=== PATIENT | male | born 1975 | race Caucasian/White ===

== ENCOUNTER 2020-10-13 10:22 | Inpatient (IN) | payer BC, SELFPAY ==
[~2020-10-13] VITALS: Ht 170.2 cm; Wt 103.9 kg
[2020-10-13 10:25] VITALS: BP_SYST 120
--- NOTE | 2020-10-13 10:30 | NUR ---
Patient to TENT1 for evaluation. Side rails up.
--- NOTE | 2020-10-13 10:45 | NUR ---
ER at bedside examining patient.
--- NOTE | 2020-10-13 11:00 | NUR ---
PT PRESENTS TO ED C/O COVID SYMPTOMS.
[2020-10-13 11:18] LABS: BASOPHILS # (AUTO) 0.1 K/uL (0.0-0.2); BASOPHILS % (AUTO) 0.4 % (0.0-2.0); HEMATOCRIT 31.2 % (36-54); HEMOGLOBIN 10.7 g/dL (14.0-18.0); LYMPHOCYTES # (AUTO) 0.7 K/uL (1.0-5.5); LYMPHOCYTES % (AUTO) 4.2 % (20.5-51.5); MEAN CORPUSCULAR HEMOGLOBIN 30 pg (27-31); MEAN CORPUSCULAR HGB CONC 34 % (32-36); MEAN CORPUSCULAR VOLUME 89 fL (79.0-98.0); MONOCYTES # (AUTO) 0.9 K/uL (0.0-1.0); MONOCYTES % (AUTO) 5.6 % (1.7-9.3); NEUTROPHILS # (AUTO) 14.6 K/uL (1.8-7.7); NEUTROPHILS % (AUTO) 89.8 % (40.0-70.0); PLATELET COUNT (AUTO) 501 K/uL (130-430); RED BLOOD CELL COUNT(AUTO) 3.52 MIL/uL (4.2-6.2); RED CELL DISTRIBUTION WIDTH 12.9 % (9.0-15.0); WHITE BLOOD COUNT (AUTO) 16.3 K/uL (4.8-10.8)
--- NOTE | 2020-10-13 11:30 | NUR ---
# 18 gauge angiocath placed to LAC Use of asceptic technique. Opsite placed over site. Blood return noted. Blood for lab drawn from site. Flushed with 10 cc of normal saline. No evidence of infiltration noted. Patient tolerated well.
[2020-10-13 11:40] LABS: CALCIUM 8.3 mg/dL (8.4-11.0); CREATININE 1.4 mg/dL (0.55-1.30)
[2020-10-13 11:42] LABS: PROTHROMBIN TIME 10.6 SECS (9.5-12.5)
[2020-10-13 11:44] LABS: ALBUMIN 2.1 g/dL (3.4-4.8); TOTAL BILIRUBIN 0.6 mg/dL (0.0-1.0)
[2020-10-13] MEDS ORDERED: ACETAMINOPHEN 500 MG TABLET PO ONE (11:45)
[2020-10-13] MEDS ORDERED: IBUPROFEN 600 MG TABLET PO ONE (11:45)
[2020-10-13] MEDS ORDERED: cefTRIAXone 1 GM in D5W 50 ML IV ONE (12:00)
[2020-10-13] MEDS ORDERED: NACL 0.9% 1,000 ML IV ONE (12:00)
[2020-10-13] MEDS ORDERED: DEXAMETHASONE SOD PHOSPHATE 10 MG/ML VIAL IVP ONE (12:00)
[2020-10-13] MEDS ORDERED: AZITHROMYCIN 500 MG in NS 250 ML IV ONE (12:00)
--- NOTE | 2020-10-13 12:00 | NUR ---
PT MEDICATED TOLERATING WELL.
[2020-10-13 12:14] LABS: CKMB RELATIVE INDEX 0.1 (0.0-2.9); CREATINE KINASE MB 0.9 ng/mL (0-3.6)
--- NOTE | 2020-10-13 14:00 | NUR ---
TEMP RECHECK 99.1F, O2 SAT 93% ON 4L NC TOLERATING WELL.
[2020-10-13] MEDS ORDERED: IOHEXOL 350 mgI/mL, 150 ML INFUS..BTL IV ONE (15:35)
[2020-10-13] MEDS ORDERED: cefTRIAXone 1 GM IVPB PREMIX 50 ML IV ONE (16:05)
[2020-10-13] MEDS ORDERED: AZITHROMYCIN 500 MG/VIAL (ZITHROMAX) IV ONE (16:06)
--- NOTE | 2020-10-13 17:40 | NUR ---
DR. BENAVIDES AT BEDSIDE FOR ADMISSION EVALUATION
--- NOTE | 2020-10-13 18:26 | NUR ---
Patient will be admitted to care of . Admitted to TELEMETRY unit. Will go to room 124A. Belongings list completed. Complete and up to date summary report printed. SBAR report to be given at bedside with opportunity for questions.
[2020-10-13] MEDS ORDERED: ACETAMINOPHEN 325 MG TABLET PO PRN (18:30)
[2020-10-13 18:45] VITALS: BP_SYST 108
--- NOTE | 2020-10-13 18:50 | NUR ---
admission notes received pt from e.r c/o alexi james, pt diagnosed with covid pneumonia under dr mcintosh. pt educated on the use of call light , tv and bed controls, encouraged to call nurse to pain and any concerns. will endorse to night nurse.
--- NOTE | 2020-10-13 19:30 | NUR ---
OPENING NOTES: Received report from dayshift nurse. Patient is resting in bed on 4L NC, tolerating well. IV noted on right forearm with dry and intact dressing. Ensured all safety precautions. Bed is locked and in the lowest position, call light within reach.
[2020-10-13 20:00] VITALS: BP_SYST 118; BP_SYST 124
[2020-10-13] MEDS: IVERMECTIN 3 MG TABLET PO SCH (21:00)
[2020-10-13] MEDS: DEXAMETHASONE SOD PHOSPHATE 10 MG/ML VIAL IVP SCH (21:00)
[2020-10-13] MEDS ORDERED: KCL 20 mEq in D5NS 1000 mL 1,000 ML IV ONE (21:05)
[2020-10-13] MEDS: ASCORBIC ACID 500 MG TABLET PO SCH (21:52)
[2020-10-13] MEDS: ENOXAPARIN SODIUM 40 MG/0.4 ML SYRINGE SUBCUT SCH (21:53)
[2020-10-13] MEDS: KCL 20 mEq in NS 1000 mL 1,000 ML IV SCH ×2 (21:54→23:15)
[2020-10-13] MEDS: INSULIN REGULAR, HUMAN 100 UNITS/ML, 10 ML VIAL (humuLIN R) SUBCUT PRN (22:19)
--- NOTE | 2020-10-13 22:45 | NUR ---
PAGED DR. OCONNOR TO REPORT PT'S BLOOD GLUCOSE OF 401 AND REPEAT WAS 449. ADMINISTERED 12 UNITS INSULIN ORDERED, PT TOLERATED WELL.
--- NOTE | 2020-10-13 23:15 | NUR ---
DR. MASTIUM RETURNED CALL RECEIVED NEW ORDERS TO ADMINISTER 15 UNITS OF INSULIN IN THE MORNING IF PT'S BLOOD GLUCOSE IS GREATER THAN 400. WILL ENTER ORDERS.
--- NOTE | 2020-10-14 02:25 | NUR ---
RN ROUNDS: patient is resting in bed and appears to be asleep. He is in stable condition. Will continue to monitor.
--- NOTE | 2020-10-14 03:24 | NUR ---
CONSULTATION PAGED/CALLED Reason for Consultation: PNA Person Who was Notified: PRASHANT Consulting Physician: ANTHONY DOCTOR PAPITO IS ONCALL Classified Ad Taker Specialty: [ Ordering Physician: MAKAYLA
[2020-10-14 06:31] LABS: C-REACTIVE PROTEIN QUANT 8.5 mg/dL (0-0.5); CALCIUM 8.3 mg/dL (8.4-11.0); CREATININE 0.96 mg/dL (0.55-1.30); POTASSIUM 3.9 mmol/L (3.5-5.1)
[2020-10-14 06:33] LABS: BASOPHILS # (AUTO) 0.1 K/uL (0.0-0.2); BASOPHILS % (AUTO) 0.8 % (0.0-2.0); EOSINOPHILS # (AUTO) 0.3 K/uL (0.0-0.4); EOSINOPHILS % (AUTO) 1.7 % (0.0-4.0); HEMATOCRIT 26.1 % (36-54); HEMOGLOBIN 9.2 g/dL (14.0-18.0); LYMPHOCYTES # (AUTO) 0.8 K/uL (1.0-5.5); LYMPHOCYTES % (AUTO) 4.9 % (20.5-51.5); MEAN CORPUSCULAR HEMOGLOBIN 31 pg (27-31); MEAN CORPUSCULAR HGB CONC 35 % (32-36); MEAN CORPUSCULAR VOLUME 88 fL (79.0-98.0); MONOCYTES # (AUTO) 0.8 K/uL (0.0-1.0); MONOCYTES % (AUTO) 5.1 % (1.7-9.3); NEUTROPHILS # (AUTO) 13.8 K/uL (1.8-7.7); NEUTROPHILS % (AUTO) 87.5 % (40.0-70.0); PLATELET COUNT (AUTO) 499 K/uL (130-430); RED BLOOD CELL COUNT(AUTO) 2.96 MIL/uL (4.2-6.2); RED CELL DISTRIBUTION WIDTH 12.9 % (9.0-15.0); WHITE BLOOD COUNT (AUTO) 15.7 K/uL (4.8-10.8)
[2020-10-14] MEDS: INSULIN REGULAR, HUMAN 100 UNITS/ML, 10 ML VIAL (humuLIN R) SUBCUT PRN ×4 (06:59→21:36)
[2020-10-14] MEDS ORDERED: INSULIN NPH/REGULAR 70-30, 100 UNITS/ML, 10 ML VIAL SUBCUT PRN (07:00)
--- NOTE | 2020-10-14 08:07 | NUR ---
CLOSING NOTES: Patient is resting in bed, alert and oriented and in stable condition. He is on 4L O2 via NC, tolerating well. He has IV on RFA, infusing well and will dry and intact dressing. Patient has been using the urinal throughout shift. Ensured all safety precautions. Bed is locked and in the lowest position, call light within reach. I have endorsed to dayshift nurse.
[2020-10-14] MEDS: ASCORBIC ACID 500 MG TABLET PO SCH ×2 (10:52→21:31)
[2020-10-14] MEDS: ENOXAPARIN SODIUM 40 MG/0.4 ML SYRINGE SUBCUT SCH ×2 (10:55→21:36)
[2020-10-14] MEDS: CHOLECALCIFEROL (VITAMIN D3) 5,000 UNIT TABLET PO SCH (10:56)
[2020-10-14] MEDS: IVERMECTIN 3 MG TABLET PO SCH (10:56)
[2020-10-14 12:16] VITALS: BP_SYST 115
[2020-10-14 16:18] VITALS: BP_SYST 125
[2020-10-14] MEDS: KCL 20 mEq in NS 1000 mL 1,000 ML IV SCH ×2 (16:52→21:37)
[2020-10-14] MEDS: AZITHROMYCIN 500 MG in NS 250 ML IV SCH (16:53)
[2020-10-14] MEDS: DEXAMETHASONE SOD PHOSPHATE 10 MG/ML VIAL IVP SCH (18:35)
--- NOTE | 2020-10-14 19:30 | NUR ---
OPENING NOTES: Received report from dayshift nurse. Patient is resting in bed, awake and alert. He is on 2L NC via NC, tolerating well. He has unlabored breathing and does not have any complaints at this time. Ensured all safety precautions. Bed is locked and in the lowest position, call light within reach.
[2020-10-14 20:00] VITALS: BP_SYST 129
[2020-10-15] VITALS (7 sets, daily range): BP systolic 112–130
--- NOTE | 2020-10-15 | NUR ---
RN ROUNDS: Patient is resting in bed, awake, alert and in stable condition. Reminded patient to reposition side to side and prone to help with breathing. Will continue to monitor patient.
[2020-10-15] MEDS: INSULIN REGULAR, HUMAN 100 UNITS/ML, 10 ML VIAL (humuLIN R) SUBCUT PRN ×3 (07:08→23:44)
[2020-10-15] MEDS: KCL 20 mEq in NS 1000 mL 1,000 ML IV SCH ×2 (07:09→16:52)
--- NOTE | 2020-10-15 08:54 | NUR ---
CLOSING NOTES: Patient is resting in bed, awake and alert. He is on 2L NC via NC, tolerating well. He has unlabored breathing. I reminded patient about the importance of turning side to side and in prone position. Ensured all safety precautions. Bed is locked and in the lowest position, call light within reach. All needs were met throughout shift. I have endorsed to dayshift nurse.
[2020-10-15] MEDS: IVERMECTIN 3 MG TABLET PO SCH (09:36)
[2020-10-15] MEDS: CHOLECALCIFEROL (VITAMIN D3) 5,000 UNIT TABLET PO SCH (09:37)
[2020-10-15] MEDS: ENOXAPARIN SODIUM 40 MG/0.4 ML SYRINGE SUBCUT SCH ×2 (09:37→23:41)
[2020-10-15] MEDS: ASCORBIC ACID 500 MG TABLET PO SCH ×2 (09:38→23:38)
[2020-10-15 11:36] LABS: BASOPHILS % (AUTO) 0.2 % (0.0-2.0); HEMATOCRIT 24.7 % (36-54); HEMOGLOBIN 8.6 g/dL (14.0-18.0); LYMPHOCYTES # (AUTO) 0.5 K/uL (1.0-5.5); LYMPHOCYTES % (AUTO) 2.6 % (20.5-51.5); MEAN CORPUSCULAR HEMOGLOBIN 31 pg (27-31); MEAN CORPUSCULAR HGB CONC 35 % (32-36); MEAN CORPUSCULAR VOLUME 90 fL (79.0-98.0); MONOCYTES # (AUTO) 0.7 K/uL (0.0-1.0); NEUTROPHILS # (AUTO) 15.9 K/uL (1.8-7.7); NEUTROPHILS % (AUTO) 93.2 % (40.0-70.0); PLATELET COUNT (AUTO) 548 K/uL (130-430); RED BLOOD CELL COUNT(AUTO) 2.74 MIL/uL (4.2-6.2)
[2020-10-15 11:52] LABS: ALBUMIN 1.8 g/dL (3.4-4.8); CALCIUM 7.8 mg/dL (8.4-11.0); CREATININE 0.85 mg/dL (0.55-1.30); POTASSIUM 4.2 mmol/L (3.5-5.1); TOTAL BILIRUBIN 0.2 mg/dL (0.0-1.0)
[2020-10-15] MEDS: AZITHROMYCIN 500 MG in NS 250 ML IV SCH (16:55)
[2020-10-15] MEDS: DEXAMETHASONE SOD PHOSPHATE 10 MG/ML VIAL IVP SCH (18:01)
--- NOTE | 2020-10-15 18:30 | NUR ---
Dietitian Recommendations * Recommend [facility] high carb-75 gm, 100 gm protein diet * Double portions of proteins and non-starchy vegetables TID * Please send Nutrition Consult for diabetic teaching prior to D/C Addendum: 10/15/20 at [address] Amended: Links added.
--- NOTE | 2020-10-15 18:31 | NUR ---
Dietitian Recommendations * Recommend [facility] high carb-75 gm, 100 gm protein diet * Double portions of proteins and non-starchy vegetables TID * Please send Nutrition Consult for diabetic teaching prior to D/C GALEN RHODES Please refer to Nutrition Assessment for details. Addendum: 10/15/20 at [address] Amended: Links added.
[2020-10-15] MEDS: INSULIN GLARGINE 100 UNITS/ML 10 ML VIAL SUBCUT SCH (23:43)
[2020-10-16] VITALS: BP_SYST 135
[2020-10-16] MEDS: KCL 20 mEq in NS 1000 mL 1,000 ML IV SCH ×2 (05:36→11:15)
[2020-10-16] MEDS: INSULIN REGULAR, HUMAN 100 UNITS/ML, 10 ML VIAL (humuLIN R) SUBCUT PRN ×4 (06:45→20:28)
--- NOTE | 2020-10-16 06:51 | NUR ---
Nutrition Update Harrison Scale 18 noted. Pt admitted for COVID Pneumonia Diet: [facility] BMI: 35.9 kg/m2 RD to follow per nutrition care standards.
[2020-10-16 07:23] LABS: BASOPHILS % (AUTO) 0.1 % (0.0-2.0); HEMATOCRIT 25.1 % (36-54); HEMOGLOBIN 8.5 g/dL (14.0-18.0); LYMPHOCYTES # (AUTO) 0.6 K/uL (1.0-5.5); LYMPHOCYTES % (AUTO) 3.6 % (20.5-51.5); MEAN CORPUSCULAR HEMOGLOBIN 31 pg (27-31); MEAN CORPUSCULAR HGB CONC 34 % (32-36); MEAN CORPUSCULAR VOLUME 91 fL (79.0-98.0); MONOCYTES # (AUTO) 0.7 K/uL (0.0-1.0); MONOCYTES % (AUTO) 4.1 % (1.7-9.3); NEUTROPHILS # (AUTO) 16.2 K/uL (1.8-7.7); NEUTROPHILS % (AUTO) 92.2 % (40.0-70.0); PLATELET COUNT (AUTO) 584 K/uL (130-430); RED BLOOD CELL COUNT(AUTO) 2.77 MIL/uL (4.2-6.2); RED CELL DISTRIBUTION WIDTH 12.9 % (9.0-15.0); WHITE BLOOD COUNT (AUTO) 17.6 K/uL (4.8-10.8)
[2020-10-16 08:00] VITALS: BP_SYST 121
--- NOTE | 2020-10-16 08:15 | NUR ---
Opening note Patient is resting in bed A&Ox 4 no complaint of pain or discomfort, no signs or symptoms of respiratory distress, patient is 4L nasal cannula tolerating well. IV is infusing no signs or symptoms of infiltration. Educated patient on plan of care, patient verbalized understanding. Bed is in lowest position call light within reach, droplet, fall and aspiration precautions are in place, will continue to monitor.
[2020-10-16 08:20] LABS: ALBUMIN 1.9 g/dL (3.4-4.8); CREATININE 0.84 mg/dL (0.55-1.30); POTASSIUM 4.5 mmol/L (3.5-5.1); TOTAL BILIRUBIN 0.3 mg/dL (0.0-1.0)
[2020-10-16] MEDS: ENOXAPARIN SODIUM 40 MG/0.4 ML SYRINGE SUBCUT SCH ×2 (08:23→20:24)
[2020-10-16] MEDS: CHOLECALCIFEROL (VITAMIN D3) 5,000 UNIT TABLET PO SCH (08:24)
[2020-10-16] MEDS: ASCORBIC ACID 500 MG TABLET PO SCH ×2 (08:24→20:23)
[2020-10-16] MEDS: IVERMECTIN 3 MG TABLET PO SCH (08:24)
--- NOTE | 2020-10-16 14:04 | NUR ---
MD rounds into see patient, updated on current status, no new orders at this time. Will refer to MD notes.
[2020-10-16 14:38] VITALS: BP_SYST 113
[2020-10-16 16:00] VITALS: BP_SYST 131
--- NOTE | 2020-10-16 17:07 | NUR ---
RN note Patient is resting in bed, vitals are stable, no complaint of pain or discomfort. Will continue to monitor.
[2020-10-16] MEDS: AZITHROMYCIN 500 MG in NS 250 ML IV SCH (17:22)
[2020-10-16] MEDS: DEXAMETHASONE SOD PHOSPHATE 10 MG/ML VIAL IVP SCH (17:22)
--- NOTE | 2020-10-16 18:29 | NUR ---
Closing note Patient is resting in bed A&Ox 4 no complaint of pain or discomfort, no signs or symptoms of respiratory distress, patient is on 4L nasal cannula tolerating well. IV is infusing no signs or symptoms of infiltration. All needs were met. Bed is in lowest position call light within reach, droplet, fall and aspiration precautions are in place, will endorse report to machinist 2nd shift.
[2020-10-16 20:00] VITALS: BP_SYST 139
[2020-10-16] MEDS: INSULIN GLARGINE 100 UNITS/ML 10 ML VIAL SUBCUT SCH (20:29)
[2020-10-17] VITALS (7 sets, daily range): BP systolic 112–128
[2020-10-17] MEDS: KCL 20 mEq in NS 1000 mL 1,000 ML IV SCH ×3 (04:00→16:37)
[2020-10-17] MEDS: INSULIN REGULAR, HUMAN 100 UNITS/ML, 10 ML VIAL (humuLIN R) SUBCUT PRN ×4 (06:46→22:23)
--- NOTE | 2020-10-17 08:00 | NUR ---
Initial note: Patient is alert, oriented x4, On Oxygen 5L/M via NC, Sat =86%. Increase Oxygen to 6L/M , will continue monitor. He is on Normal Saline +20 of KCL IVF at 100 Ml/Hr, infusing well via right forearm IV site, no sign of infiltration. Will continue monitor.
[2020-10-17] MEDS: ASCORBIC ACID 500 MG TABLET PO SCH ×2 (08:04→21:13)
[2020-10-17] MEDS: CHOLECALCIFEROL (VITAMIN D3) 5,000 UNIT TABLET PO SCH (08:04)
[2020-10-17] MEDS: IVERMECTIN 3 MG TABLET PO SCH (08:04)
--- NOTE | 2020-10-17 10:33 | NUR ---
Encourage patient to do I.S. 10 times Q 1 hr, and proning.
[2020-10-17] MEDS: ENOXAPARIN SODIUM 40 MG/0.4 ML SYRINGE SUBCUT SCH ×2 (10:46→21:14)
[2020-10-17 11:57] LABS: BASOPHILS % (AUTO) 0.2 % (0.0-2.0); EOSINOPHILS % (AUTO) 0.2 % (0.0-4.0); HEMATOCRIT 26.1 % (36-54); HEMOGLOBIN 8.9 g/dL (14.0-18.0); LYMPHOCYTES # (AUTO) 1.1 K/uL (1.0-5.5); LYMPHOCYTES % (AUTO) 5.4 % (20.5-51.5); MEAN CORPUSCULAR HEMOGLOBIN 31 pg (27-31); MEAN CORPUSCULAR HGB CONC 34 % (32-36); MEAN CORPUSCULAR VOLUME 91 fL (79.0-98.0); MONOCYTES # (AUTO) 0.9 K/uL (0.0-1.0); MONOCYTES % (AUTO) 4.6 % (1.7-9.3); NEUTROPHILS # (AUTO) 18.6 K/uL (1.8-7.7); NEUTROPHILS % (AUTO) 89.6 % (40.0-70.0); PLATELET COUNT (AUTO) 625 K/uL (130-430); RED BLOOD CELL COUNT(AUTO) 2.87 MIL/uL (4.2-6.2); RED CELL DISTRIBUTION WIDTH 13.3 % (9.0-15.0); WHITE BLOOD COUNT (AUTO) 20.7 K/uL (4.8-10.8)
--- NOTE | 2020-10-17 14:00 | NUR ---
Patient is unable to pron , only lay on his side. RT has changed Oxygen to Oxymizer at 8L/M , Sat O2=89-93%, SOB on exertion.
--- NOTE | 2020-10-17 15:16 | NUR ---
New IV site: Rt IV access is infiltrated. Remove it with tip intact , pressure dressing applied, no sign of bleeding. Re-insert a new IV site on left hand # 22G and resume the same IVF.
[2020-10-17] MEDS: AZITHROMYCIN 500 MG in NS 250 ML IV SCH (16:21)
[2020-10-17] MEDS: DEXAMETHASONE SOD PHOSPHATE 10 MG/ML VIAL IVP SCH (17:22)
--- NOTE | 2020-10-17 18:43 | NUR ---
Closing note: Patient is still very weak, on Oxygen 8L/M via Oxymizer, still coughing and SOB on exertion. He is unable to pron , only lay on his side. Only has I.S up to 500 ml. He stats having better appetite for dinner.
[2020-10-17] MEDS: INSULIN GLARGINE 100 UNITS/ML 10 ML VIAL SUBCUT SCH (22:21)
[2020-10-18] MEDS ORDERED: KCL 20 mEq in NS 1000 mL 1,000 ML IV ONE (03:26)
[2020-10-18] MEDS: KCL 20 mEq in NS 1000 mL 1,000 ML IV SCH ×2 (03:29→16:14)
[2020-10-18] MEDS: INSULIN REGULAR, HUMAN 100 UNITS/ML, 10 ML VIAL (humuLIN R) SUBCUT PRN ×4 (06:15→21:33)
--- NOTE | 2020-10-18 08:00 | NUR ---
OPENING NOTES PATIENT AAOX 4. LUNGS BILATERALLY DIMINISHED AT THE BASES. NON PRODUCTIVE COUGH NOTED. HAS IV ACCESS ON THE LEFT FOREARM #22. NORMAL SALINE +20KCL AT 100CC/HR INFUSING ON WELL. ABDOMEN SOFT AND NON DISTENDED. HAS OXIMIZER OF 5 LITERS OF OXYGEN. BED LOW POSITION, ALARMED AND LOCKED. WILL CONTINUE TO MONITOR PATIENTS STATUS.
[2020-10-18 08:04] VITALS: BP_SYST 120
[2020-10-18] MEDS: IVERMECTIN 3 MG TABLET PO SCH (08:26)
[2020-10-18] MEDS: ASCORBIC ACID 500 MG TABLET PO SCH ×2 (08:26→21:30)
[2020-10-18] MEDS: CHOLECALCIFEROL (VITAMIN D3) 5,000 UNIT TABLET PO SCH (08:27)
[2020-10-18] MEDS: metFORMIN HCL 500 MG TABLET PO SCH ×2 (08:27→17:44)
[2020-10-18] MEDS: ENOXAPARIN SODIUM 40 MG/0.4 ML SYRINGE SUBCUT SCH ×2 (08:28→21:34)
[2020-10-18 12:56] VITALS: BP_SYST 103
--- NOTE | 2020-10-18 13:02 | NUR ---
BLOOD SUGAR 154 MG/DL. REFUSED TO HAVE COVERAGE
[2020-10-18] MEDS: AZITHROMYCIN 500 MG in NS 250 ML IV SCH (16:14)
[2020-10-18 17:14] VITALS: BP_SYST 120
[2020-10-18 17:30] VITALS: BP_SYST 112
[2020-10-18] MEDS: DEXAMETHASONE SOD PHOSPHATE 10 MG/ML VIAL IVP SCH (17:43)
--- NOTE | 2020-10-18 18:43 | NUR ---
LATEST BS 188 MG.DL. COVERAGE GIVEN. MADE COMFORTABLE.
[2020-10-18 19:30] VITALS: BP_SYST 122
[2020-10-18 20:00] VITALS: BP_SYST 122
[2020-10-18] MEDS: INSULIN GLARGINE 100 UNITS/ML 10 ML VIAL SUBCUT SCH (21:32)
[2020-10-19] MEDS: KCL 20 mEq in NS 1000 mL 1,000 ML IV SCH ×3 (00:35→20:26)
[2020-10-19 03:24] VITALS: BP_SYST 116
[2020-10-19] MEDS: INSULIN REGULAR, HUMAN 100 UNITS/ML, 10 ML VIAL (humuLIN R) SUBCUT PRN ×2 (06:30→20:32)
[2020-10-19 06:47] LABS: BASOPHILS % (AUTO) 0.1 % (0.0-2.0); HEMATOCRIT 27.7 % (36-54); HEMOGLOBIN 9.4 g/dL (14.0-18.0); LYMPHOCYTES % (AUTO) 5.4 % (20.5-51.5); MEAN CORPUSCULAR HEMOGLOBIN 31 pg (27-31); MEAN CORPUSCULAR HGB CONC 34 % (32-36); MEAN CORPUSCULAR VOLUME 92 fL (79.0-98.0); MONOCYTES # (AUTO) 0.5 K/uL (0.0-1.0); NEUTROPHILS # (AUTO) 16.1 K/uL (1.8-7.7); NEUTROPHILS % (AUTO) 91.5 % (40.0-70.0); PLATELET COUNT (AUTO) 596 K/uL (130-430); RED BLOOD CELL COUNT(AUTO) 3.03 MIL/uL (4.2-6.2); RED CELL DISTRIBUTION WIDTH 13.4 % (9.0-15.0); WHITE BLOOD COUNT (AUTO) 17.6 K/uL (4.8-10.8)
[2020-10-19 07:16] LABS: CALCIUM 8.5 mg/dL (8.4-11.0); CREATININE 0.71 mg/dL (0.55-1.30); POTASSIUM 4.8 mmol/L (3.5-5.1)
--- NOTE | 2020-10-19 07:35 | NUR ---
OPENING NOTES PATIENT AAOX 4. LUNGS BILATERALLY DIMINISHED AT THE BASES. SLIGHT CRACKLES NOTED. HAS COUGHING NON PRODUCTIVELY. HAS OXYGEN WITH OXIMIZER AT 5 LITERS OF OXYGEN. OBESE. HAS IV ACCESS ON THE LEFT HAND #22. WITH NS+20KCL AT 100CC/HR INFUSING ON WELL. VITALS SIGNS STABLE. AFEBRILE. CALL LIGHTS WITHIN REACH. BED LOW POSITION, LOCKED AND ALARMED. WILL CONTINUE TO MONITOR PATIENTS STATUS.
[2020-10-19] MEDS: CHOLECALCIFEROL (VITAMIN D3) 5,000 UNIT TABLET PO SCH (08:31)
[2020-10-19] MEDS: ASCORBIC ACID 500 MG TABLET PO SCH ×2 (08:31→20:27)
[2020-10-19] MEDS: ENOXAPARIN SODIUM 40 MG/0.4 ML SYRINGE SUBCUT SCH ×2 (08:32→20:33)
[2020-10-19] MEDS: metFORMIN HCL 500 MG TABLET PO SCH ×2 (08:32→18:00)
[2020-10-19 08:48] VITALS: BP_SYST 110
--- NOTE | 2020-10-19 09:00 | NUR ---
DUE MEDS GIVEN ORDERED.
--- NOTE | 2020-10-19 11:35 | NUR ---
LATEST BS 150 MG/DL. NO COVERAGE GIVEN.
[2020-10-19 11:45] VITALS: BP_SYST 106
--- NOTE | 2020-10-19 16:06 | NUR ---
ROCEPHIN IV 1 GRAM GIVEN AT THIS TIME. NOT 0830AM.
[2020-10-19] MEDS: DEXAMETHASONE SOD PHOSPHATE 10 MG/ML VIAL IVP SCH (18:20)
[2020-10-19 19:30] VITALS: BP_SYST 111
[2020-10-19 20:00] VITALS: BP_SYST 111
[2020-10-19] MEDS: INSULIN GLARGINE 100 UNITS/ML 10 ML VIAL SUBCUT SCH (20:30)
[2020-10-20 00:30] VITALS: BP_SYST 129
[2020-10-20] MEDS: KCL 20 mEq in NS 1000 mL 1,000 ML IV SCH ×2 (05:27→15:31)
[2020-10-20] MEDS: INSULIN REGULAR, HUMAN 100 UNITS/ML, 10 ML VIAL (humuLIN R) SUBCUT PRN ×3 (06:18→21:27)
--- NOTE | 2020-10-20 07:30 | NUR ---
Initial Note Patient states he is uncomfortable, needs to have a BM but cannot use restroom due to clogged toilet. Notified engineering. Provided bedside commode for patient. Awake and oriented x 4, able to ambulate. Noted dyspnea with exertion. No pain. Receiving 12 L via Oxymizer saturating 93%. Call light in reach, encouraged to call. Bed in lowest position.
[2020-10-20 08:00] VITALS: BP_SYST 118
--- NOTE | 2020-10-20 08:15 | NUR ---
Notes Engineering reports toilet fixed.
[2020-10-20] MEDS: CHOLECALCIFEROL (VITAMIN D3) 5,000 UNIT TABLET PO SCH (08:33)
[2020-10-20] MEDS: metFORMIN HCL 500 MG TABLET PO SCH ×2 (08:33→18:14)
[2020-10-20] MEDS: ASCORBIC ACID 500 MG TABLET PO SCH ×2 (08:33→21:18)
[2020-10-20] MEDS: ENOXAPARIN SODIUM 40 MG/0.4 ML SYRINGE SUBCUT SCH ×2 (08:41→21:26)
[2020-10-20 10:52] VITALS: BP_SYST 118
[2020-10-20] MEDS: guaiFENesin/DEXTROMETHORPHAN 118 ML PO PRN ×3 (11:42→21:21)
--- NOTE | 2020-10-20 12:00 | NUR ---
Notes Patient awake and alert watching TV, just finished eating a turkey sandwich. Patient has dry hacking cough, received cough syrup PRN at 1140. Will continue to monitor. No pain or acute distress. Saturating 98% on 12 L via Oxymizer. Bed in lowest position and call light in reach.
[2020-10-20 12:13] VITALS: BP_SYST 103
[2020-10-20] MEDS ORDERED: LOPERAMIDE HCL 2 MG CAPSULE PO PRN ×2 (16:00)
--- NOTE | 2020-10-20 16:00 | NUR ---
Notes Patient lying in bed watching TV, reports upset stomach and requesting Imodium. Dr. Villalpando notified.
[2020-10-20 16:10] VITALS: BP_SYST 112
--- NOTE | 2020-10-20 16:10 | NUR ---
Notes Spoke with patient's Kiera for update. States patient cannot rest or sleep in bedroom due to patient's roommate being too noisy. Notified charge nurses Hanh and Enedina. Will move patient to another room.
--- NOTE | 2020-10-20 16:24 | NUR ---
Nutrition F/U RD reviewed pt's current EMR record including diet Hx, physician notes, nursing notes, pertinent labs/meds/procedures, care trends, and care activity. Admission Dx: COVID pneumonia PMH: none per physician notes Pt also found w/ sepsis, new onset DM, dehydration, and AILEEN per physician notes SARS-CoV-2 Ag (Rapid) Positive 10/13 Current Diet Order/Nutrition Support: [facility] high carb-75 gm, PRO 100 gms x4 days Subjective Info: Pt continues under airborne isolation precautions d/t COVID-19. RD bedside visit deferred to minimize exposure. RD called pt's room at [phone], no response. RD spoke w/ pt's RN in nursing station who reported that pt's appetite has been good, however, he prefers sandwiches and gelatin as he does not care much for the regular hospital foods. RD offered to have sandwiches sent at lunch and dinner, and RN stated that pt would likely appreciate this. RN also reported that pt is unaware of his new diabetes Dx -- RD noted pending HgA1c results from 10/16. RN stated she would F/U w/ physicians. Per EMR review, PO intake average of 86% x8 meals; abd is soft and non-distended w/ active bowel sounds; last BM x2 10/16; pt is on 12 L O2 via oxymizer; Harrison scale: 21, no PIs noted. Pt is likely meeting nutritional needs at this time, and current diet order remains appropriate/adequate. Pertinent Medications: VIT D3, lovenox, zinc, VIT C, SSI, decadron, glucophage, lantus Pertinent Labs: 10/19: WBC 17.6 H, BG 119 H, POC BG 143 H, HgA1c pending (10/16) Ht: 5'7" Wt: 229#/104 kg (10/15) -- stable Body Mass Index: 35.86 kg/m2 (obesity class II) %IBW: 155 [place]/Adjusted Body Weight: IBW: 148#/67 kg. Adj IBW (obesity): 168#/76 kg Current % PO Good (75-100%) Estimated Energy Expenditure (kcals/day) 3822-1727 kcal/day (30-35 kcal/kg Adj IBW d/t sepsis) Estimated Protein Required (g/day) 114-152 gm/day (1.5-2 gm/kg Adj IBW d/t sepsis) Estimated Fluid Required (l/day) 2.3-2.7 L/day (1 ml/kcal/day for maintenance) Problem/Etiology/Signs/Symptoms Increased nutritional needs related to metabolic demands as evidenced by estimated nutritional requirements for sepsis. *ongoing Altered nutrition-related labs related to endocrine dysfunction as evidenced by elevated BG and POC BG lab values. *ongoing Expected Outcomes/Goals - Monitor appetite and PO intakes w/ goal of pt meeting at least 80% of estimated nutritional needs, labs trending WNL, normal GI function, and skin integrity/wt maintenance Dietitian Recommendations * Recommend continuing [facility] high carb-75 gm, 100 gm protein diet * Adhere to pt food preferences * Please send Nutrition Consult for diabetic teaching prior to D/C Follow Up Mod Risk: F/U in 3-5 days
--- NOTE | 2020-10-20 16:32 | NUR ---
Dietitian Recommendations * Recommend continuing [facility] high carb-75 gm, 100 gm protein diet * Adhere to pt food preferences * Please send Nutrition Consult for diabetic teaching prior to D/C LP, RD Please refer to Nutrition F/U for details.
[2020-10-20] MEDS: DEXAMETHASONE SOD PHOSPHATE 10 MG/ML VIAL IVP SCH (18:15)
--- NOTE | 2020-10-20 18:59 | NUR ---
Closing Note Patient is lying in bed watching TV. No pain or distress, states relief of stomach upset after taking Imodium. Will transfer to room 125B, room is currently being cleaned by EVS. Patient and notified. Spoke with Kiera patient's to give update - please update with any changes . Patient comfortable at this time, bed locked in lowest position. Encouraged patient to use call light, left within reach. Will endorse to night nurse.
--- NOTE | 2020-10-20 19:15 | NUR ---
OPENING NOTES: Received patient report from morning shift nurse. Patient in bed, AAOx4, breathing evenly and nonlabored on 12L of O2 via oxymizer. HOB elevated, no s/s of distress at rest. Patient has an IV on the LH 22G, patent, benign, and flushing. No s/s of infection or infiltration. Fall/safety/isolation precaution. Educated patient on plan of care and call light use. Patient verbalized understanding with return demonstration. Will continue to monitor.
[2020-10-20 21:10] VITALS: BP_SYST 123
[2020-10-20] MEDS: INSULIN GLARGINE 100 UNITS/ML 10 ML VIAL SUBCUT SCH (21:28)
--- NOTE | 2020-10-21 | NUR ---
ROUNDS: Patient in bed, eyes closed, breathing evenly and nonlabored on 12L of O2 via oxymizer, no s/s of distress. All needs met at this time. Will continue to monitor.
[2020-10-21 00:15] VITALS: BP_SYST 120
[2020-10-21] MEDS: KCL 20 mEq in NS 1000 mL 1,000 ML IV SCH ×3 (00:26→21:23)
[2020-10-21] MEDS: INSULIN REGULAR, HUMAN 100 UNITS/ML, 10 ML VIAL (humuLIN R) SUBCUT PRN ×2 (06:07→21:28)
--- NOTE | 2020-10-21 06:31 | NUR ---
CLOSING NOTES: Patient in bed, AAOx4, breathing evenly and nonlabored on 12L of O2 via oxymizer. HOB elevated, no s/s of distress at rest. Patient has an IV on the LH 22G, patent, benign, and flushing. No s/s of infection or infiltration. Fall/safety/isolation precaution. Will continue to monitor and endorse care to morning shift nurse.
[2020-10-21] MEDS ORDERED: AZITHROMYCIN 500 MG in NS 250 ML IV SCH (08:00)
[2020-10-21] MEDS: metFORMIN HCL 500 MG TABLET PO SCH ×2 (08:11→17:14)
[2020-10-21] MEDS: CHOLECALCIFEROL (VITAMIN D3) 5,000 UNIT TABLET PO SCH (08:11)
[2020-10-21] MEDS: ENOXAPARIN SODIUM 40 MG/0.4 ML SYRINGE SUBCUT SCH ×2 (08:11→21:29)
[2020-10-21] MEDS: ASCORBIC ACID 500 MG TABLET PO SCH ×2 (08:11→21:36)
[2020-10-21 08:40] VITALS: BP_SYST 100
--- NOTE | 2020-10-21 08:40 | NUR ---
Opening note Patient is resting in bed A&Ox 4 no complaint of pain or discomfort, no signs or symptoms of respiratory distress, patient is on 8L Oxymizer tolerating well, is also using incentive spirometer. IV is infusing no signs or symptoms of infiltration. Educated patient on plan of care, patient verbalized understanding. Bed is in lowest position call light within reach, droplet, fall and aspiration precautions are in place, will continue to monitor.
--- NOTE | 2020-10-21 11:20 | NUR ---
RN note Spoke with via telephone, updated on patients current status. Now new orders at this time. Will refer to MD notes.
[2020-10-21 16:00] VITALS: BP_SYST 115
--- NOTE | 2020-10-21 16:17 | NUR ---
Rn note Patient is resting in bed, able to ambulate to the restroom without feeling short of breath. No complaint of pain or discomfort. Will continue to monitor.
[2020-10-21] MEDS: AZITHROMYCIN 500 MG in NS 250 ML IV SCH (17:14)
[2020-10-21] MEDS: DEXAMETHASONE SOD PHOSPHATE 10 MG/ML VIAL IVP SCH (17:15)
--- NOTE | 2020-10-21 18:41 | NUR ---
Closing note Patient is resting in bed A&Ox4 no complaint of pain or discomfort, no signs or symptoms of respiratory distress, patient is on 8L Oxymizer tolerating well, is also using incentive spirometer. IV is infusing no signs or symptoms of infiltration. All needs were met. Bed is in lowest position call light within reach, droplet, fall and aspiration precautions are in place. Will endorse report to marine farmer.
--- NOTE | 2020-10-21 19:35 | NUR ---
initial notes: pt is AAOx4, no pain, not distress, stable. ivf infusing well. pt still on o2 via oxymizer at 10l sating 97%. HOB is high. covid isolation, call light with the pt. safety precaution in place. will monitor.
[2020-10-21 20:31] VITALS: BP_SYST 118
[2020-10-21] MEDS: INSULIN GLARGINE 100 UNITS/ML 10 ML VIAL SUBCUT SCH (21:26)
[2020-10-22] VITALS: BP_SYST 125
--- NOTE | 2020-10-22 | NUR ---
sleeping, stable vs, no sob, not distress, needs attended, covid precaution.
[2020-10-22] MEDS: guaiFENesin/DEXTROMETHORPHAN 118 ML PO PRN (00:40)
--- NOTE | 2020-10-22 04:00 | NUR ---
sleeping, stable, no sob, not distress, needs attended, covid precaution.
[2020-10-22] MEDS: KCL 20 mEq in NS 1000 mL 1,000 ML IV SCH ×2 (06:19→16:39)
--- NOTE | 2020-10-22 06:31 | NUR ---
closing: pt is resting, wakes up, blood [id number],no coverage, needs attended the whole shift, call light with the pt. o2 via oxymizer at 10l tolerating well. will continue to monitor pt until sbar reporting given to am rn.
[2020-10-22 06:54] LABS: BASOPHILS % (AUTO) 0.2 % (0.0-2.0); EOSINOPHILS % (AUTO) 0.1 % (0.0-4.0); HEMATOCRIT 28.5 % (36-54); HEMOGLOBIN 9.6 g/dL (14.0-18.0); MEAN CORPUSCULAR HEMOGLOBIN 31 pg (27-31); MEAN CORPUSCULAR HGB CONC 34 % (32-36); MEAN CORPUSCULAR VOLUME 92 fL (79.0-98.0); MONOCYTES # (AUTO) 0.8 K/uL (0.0-1.0); MONOCYTES % (AUTO) 6.8 % (1.7-9.3); NEUTROPHILS # (AUTO) 9.6 K/uL (1.8-7.7); NEUTROPHILS % (AUTO) 83.9 % (40.0-70.0); PLATELET COUNT (AUTO) 483 K/uL (130-430); RED BLOOD CELL COUNT(AUTO) 3.09 MIL/uL (4.2-6.2); RED CELL DISTRIBUTION WIDTH 14.6 % (9.0-15.0); WHITE BLOOD COUNT (AUTO) 11.4 K/uL (4.8-10.8)
[2020-10-22 08:00] VITALS: BP_SYST 114
[2020-10-22 09:01] LABS: ALBUMIN 2.5 g/dL (3.4-4.8); CALCIUM 8.7 mg/dL (8.4-11.0); CREATININE 0.78 mg/dL (0.55-1.30); POTASSIUM 4.3 mmol/L (3.5-5.1); TOTAL BILIRUBIN 0.5 mg/dL (0.0-1.0)
[2020-10-22] MEDS: metFORMIN HCL 500 MG TABLET PO SCH ×2 (09:37→17:16)
[2020-10-22] MEDS: ENOXAPARIN SODIUM 40 MG/0.4 ML SYRINGE SUBCUT SCH ×2 (09:37→22:17)
[2020-10-22] MEDS: CHOLECALCIFEROL (VITAMIN D3) 5,000 UNIT TABLET PO SCH (09:38)
[2020-10-22] MEDS: ASCORBIC ACID 500 MG TABLET PO SCH ×2 (09:38→22:16)
[2020-10-22 12:00] VITALS: BP_SYST 111
--- NOTE | 2020-10-22 12:00 | NUR ---
Patient's O2 titrated down to 6L. Tolerated without distress, O2 sat at 95-97%
[2020-10-22 16:00] VITALS: BP_SYST 109
--- NOTE | 2020-10-22 16:00 | NUR ---
Patient's O2 setting is titrated down to 4L oximizer. O2 saturation at 95%-97%. Tolerating without distress.
[2020-10-22] MEDS: AZITHROMYCIN 500 MG in NS 250 ML IV SCH (16:39)
[2020-10-22] MEDS: DEXAMETHASONE SOD PHOSPHATE 10 MG/ML VIAL IVP SCH (17:16)
--- NOTE | 2020-10-22 18:00 | NUR ---
O2 setting titrated down to 2L. O2 saturation at 93-95%. Tolerating without distress.
--- NOTE | 2020-10-22 19:30 | NUR ---
initial notes: pt is AAOx4, no pain, not distress, stable. ivf infusing well. pt still on o2 via oxymizer at 2l sating 97%, change to NC at 3l sating 95-97%. HOB is high. covid isolation, call light with the pt. safety precaution in place. will monitor.
[2020-10-22 19:35] VITALS: BP_SYST 114
[2020-10-22] MEDS: INSULIN GLARGINE 100 UNITS/ML 10 ML VIAL SUBCUT SCH (22:18)
[2020-10-22] MEDS: INSULIN REGULAR, HUMAN 100 UNITS/ML, 10 ML VIAL (humuLIN R) SUBCUT PRN (22:19)
[2020-10-23] VITALS: BP_SYST 120
--- NOTE | 2020-10-23 | NUR ---
resting queitly, not distress, no sob, no pain, vss, tolerating o2 via NC at 3l sating 97%, needs attended. call light in reach.
[2020-10-23] MEDS: KCL 20 mEq in NS 1000 mL 1,000 ML IV SCH ×3 (03:23→23:22)
--- NOTE | 2020-10-23 03:27 | NUR ---
sleeping, comfortable, no sob, no distress, no pain, stable. will continue to monitor.covid isolation.
--- NOTE | 2020-10-23 07:02 | NUR ---
closing: pt is resting, wakes up, blood sugar 127,no coverage, needs attended the whole shift, call light with the pt. o2 via NC at 3l tolerating well. will continue to monitor pt until sbar reporting given to am rn.
[2020-10-23 07:04] LABS: BASOPHILS % (AUTO) 0.2 % (0.0-2.0); HEMATOCRIT 29.2 % (36-54); LYMPHOCYTES # (AUTO) 0.9 K/uL (1.0-5.5); LYMPHOCYTES % (AUTO) 8.1 % (20.5-51.5); MEAN CORPUSCULAR HEMOGLOBIN 32 pg (27-31); MEAN CORPUSCULAR HGB CONC 34 % (32-36); MEAN CORPUSCULAR VOLUME 92 fL (79.0-98.0); MONOCYTES # (AUTO) 0.5 K/uL (0.0-1.0); MONOCYTES % (AUTO) 5.2 % (1.7-9.3); NEUTROPHILS # (AUTO) 9.2 K/uL (1.8-7.7); NEUTROPHILS % (AUTO) 86.5 % (40.0-70.0); PLATELET COUNT (AUTO) 433 K/uL (130-430); RED BLOOD CELL COUNT(AUTO) 3.16 MIL/uL (4.2-6.2); RED CELL DISTRIBUTION WIDTH 14.6 % (9.0-15.0); WHITE BLOOD COUNT (AUTO) 10.6 K/uL (4.8-10.8)
[2020-10-23] MEDS: ASCORBIC ACID 500 MG TABLET PO SCH ×2 (07:44→21:16)
[2020-10-23] MEDS: CHOLECALCIFEROL (VITAMIN D3) 5,000 UNIT TABLET PO SCH (07:44)
[2020-10-23] MEDS: metFORMIN HCL 500 MG TABLET PO SCH ×2 (07:44→17:28)
[2020-10-23] MEDS: ENOXAPARIN SODIUM 40 MG/0.4 ML SYRINGE SUBCUT SCH ×2 (07:45→21:19)
[2020-10-23 08:00] VITALS: BP_SYST 111
--- NOTE | 2020-10-23 08:00 | NUR ---
AAOx4,3L of O2 via nc, no s/s of distress. HOB elevated. Patient has an IV on the Left FA, intact and patent.. No s/s of infection or infiltration.. Educated patient on plan of care and call light use. Patient verbalized understanding with return demonstration. Fall/safety/isolation precaution. maintained
[2020-10-23 10:23] VITALS: BP_SYST 111
[2020-10-23 10:54] LABS: ALBUMIN 2.6 g/dL (3.4-4.8); CALCIUM 8.8 mg/dL (8.4-11.0); CREATININE 0.72 mg/dL (0.55-1.30); POTASSIUM 4.1 mmol/L (3.5-5.1); TOTAL BILIRUBIN 0.5 mg/dL (0.0-1.0)
--- NOTE | 2020-10-23 12:00 | NUR ---
BS 102. No coverage needed.
[2020-10-23 13:28] VITALS: BP_SYST 109
--- NOTE | 2020-10-23 16:00 | NUR ---
Patient is off O2. saturation at 90-91%. Will monitor.
[2020-10-23 16:07] VITALS: BP_SYST 111
--- NOTE | 2020-10-23 19:15 | NUR ---
Received bedside report. pt in bed resting with hob elevated. pt o2 sat staying at 87%. Pt placed on 2L nc. All other needs meet at this time. call light within reach. bed locked in lowest position. will continue to monitor.
[2020-10-23 20:25] VITALS: BP_SYST 127
[2020-10-23] MEDS: INSULIN GLARGINE 100 UNITS/ML 10 ML VIAL SUBCUT SCH (21:27)
--- NOTE | 2020-10-23 23:00 | NUR ---
Pt denies sob. pt on 2l nc. O2 sat at 93%. Will continue to monitor.
[2020-10-24] VITALS: BP_SYST 107
[2020-10-24 04:15] VITALS: BP_SYST 103
--- NOTE | 2020-10-24 07:28 | NUR ---
Endorsed care to day nurse
--- NOTE | 2020-10-24 07:40 | NUR ---
Opening note Received report from night nurse. Patient is alert and oriented x4. On 2 L nasal cannula and tolerating well with no signs of shortness of breath noted. O2 sat at 100%. Titrated off oxygen and O2 sat remains stable at 95%. No complaints of shortness of breath. IV is patent, infusing fluids as ordered. Safety, droplet, and contact precautions in place. Call light within reach. Bed locked and in lowest position. Will continue to monitor.
[2020-10-24 08:00] VITALS: BP_SYST 109
[2020-10-24] MEDS: metFORMIN HCL 500 MG TABLET PO SCH ×2 (08:52→17:21)
[2020-10-24] MEDS: ASCORBIC ACID 500 MG TABLET PO SCH (08:52)
[2020-10-24] MEDS: CHOLECALCIFEROL (VITAMIN D3) 5,000 UNIT TABLET PO SCH (08:52)
[2020-10-24] MEDS: KCL 20 mEq in NS 1000 mL 1,000 ML IV SCH (08:53)
[2020-10-24] MEDS: ENOXAPARIN SODIUM 40 MG/0.4 ML SYRINGE SUBCUT SCH (08:54)
--- NOTE | 2020-10-24 11:08 | NUR ---
O2 Patient's O2 sat on room air at rest is 91%. Ambulated with patient and O2 sat at 81% on room air. Back in bed. On room air, O2 at 85%. Patient complaining of shortness of breath. O2 resumed at 2 L and sat at 90%. Will monitor.
[2020-10-24 12:58] VITALS: BP_SYST 110
--- NOTE | 2020-10-24 13:45 | NUR ---
Dr. Kwasi pablo MD to see patient. Gave orders for discharge if cleared by ID. Paged Dr. Menendez, awaiting callback.
--- NOTE | 2020-10-24 14:03 | NUR ---
Referral for home O2 sent to [facility] [phone].
--- NOTE | 2020-10-24 15:54 | NUR ---
Spoke to Dr. Menendez. Cleared patient for discharge.
[2020-10-24 16:45] VITALS: BP_SYST 112
--- NOTE | 2020-10-24 17:27 | NUR ---
SPOKE WITH , JOSE. HOME OXYGEN HAS ALREADY BEEN SET UP AT THEIR HOUSE.
[2020-10-24 18:18] VITALS: BP_SYST 112
--- NOTE | 2020-10-24 19:00 | NUR ---
D/C Patient Patient given medication reconciliation form and D/C instructions. Exit Care provided. Patient verbalized understanding. MD discussed with patient the results and treatment provided. Ambulatory with steady gait for discharge to home. Patient in stable condition, ID band removed. IV catheter removed, intact and dressing applied, no active bleeding. Written prescribtions given. Patient educated on disease management. All belongings sent with patient.
== END 2020-10-24 19:00 | disposition home or self-care (01) | DRG 871 ==
LOC: SED 10:22 → STU 13:14
PROVIDERS: ADMIT Family Medicine; ATTEND Family Medicine
DX: A41.9 Sepsis, unspecified organism (principal); J12.82 Pneumonia due to coronavirus disease 2019; U07.1 COVID-19; J96.21 Acute and chronic respiratory failure with hypoxia; N17.9 Acute kidney failure, unspecified; J98.2 Interstitial emphysema; E66.01 Morbid (severe) obesity due to excess calories; E11.9 Type 2 diabetes mellitus without complications; E86.0 Dehydration; Z68.35 Body mass index [BMI] 35.0-35.9, adult
CPT/HCPCS: 36415; 36600; 71045; 71275; 76376; 80048; 80053; 82550; 82553; 82728; 82803-TC; 82962; 83036; 83605; 83615; 83880; 84484; 85025; 85379; 85384; 85610-TC; 85730-TC; 86140; 86886; 86900; 86901; 87040-TC; 93005; 94760; 96360; 99285; G0378; J0456; J0696; J1100; J1650; J1815; J3480; J7050; J7060; Q9967

== ENCOUNTER 2020-11-17 12:08 | Emergency (ER) | payer BC, SELFPAY ==
[~2020-11-17] VITALS: Ht 172.7 cm; Wt 97.5 kg
--- NOTE | 2020-11-17 12:10 | NUR ---
ER DR. ORDAZ EXAMINING PT IN TENT
--- NOTE | 2020-11-17 12:15 | NUR ---
PT CAME IN FOR CHEST X-RAY ORDERED BY DR. BENAVIDES, PT DIAGNOSED WITH COVID-19 IN SEPTEMBER. STILL HAVING SOB WITH EXERTION.V/S STABLE, AMBULATORY, AAOX4
--- NOTE | 2020-11-17 12:16 | NUR ---
PLACED IN TENT, PT CALM, ALERT, DYSPNEIC. COMMUNICATES CLEARLY IN FULL COMPLETE SENTECES
[2020-11-17 12:28] VITALS: BP_SYST 147
[2020-11-17 12:37] VITALS: BP_SYST 136
--- NOTE | 2020-11-17 12:38 | NUR ---
Patient given written and verbal discharge instructions and verbalizes understanding. ER MD discussed with patient the results and treatment provided. Patient in stable condition. ID arm band removed. Patient educated on pain management and to follow up with PMD. Pain Scale 0/10 Opportunity for questions provided and answered. Medication side effect fact sheet provided.
== END 2020-11-17 12:39 | disposition home or self-care (01) ==
LOC: SED 12:08 → EDSTATUS 12:08 → SED 12:39
DX: U07.1 COVID-19 (principal); J12.82 Pneumonia due to coronavirus disease 2019; J98.4 Other disorders of lung
CPT/HCPCS: 71046-TC; 99283